=== PATIENT | male | born 1940 | race Caucasian/White ===

== ENCOUNTER → 2021-01-17 | Day surgery (SDC) | payer OTHER ==
[~2021-01-17] MED LIST: ACYCLOVIR400 MG PO; AMLODIPINE BESYL5 MG PO; ANTIDEPRESSANT PO; ARTIFICIAL TEA1 EAC1 EYEBOTH; CEFDINIR300 MG PO; COZAAR100 MG PO; CYMBALTA 30MG C30 MG PO; DOXYCYCLINE MO100 MG PO; FOLIC ACID1 MG PO; GLUCOTROL10 MG PO; HYZAAR 100-251 EACH PO; LEVAQUIN500 MG PO; LOPRESSOR25 MG PO; METFORMIN HCL500 MG PO; NORCO 5-325 TA1 EACH PO; NORCO 5-325 TA1 EACH PO/GT; PREDNISONE 20MG20 MG PO; PRINIVIL10 MG PO; VIBRAMYCIN100 MG PO; XARELTO10 MG PO; ZOFRAN8 MG PO/GT
[2021-01-17 09:27] LABS: HCT 32.5 % (42.0-52.0); MCH 33.2 pg (25.0-31.0); MCHC 33.8 g/dL (32.0-36.0); MCV 98.2 fL (78.0-100.0); MPV 9.7 fL (6.0-9.5); RBC 3.31 M/uL (4.70-6.00); RDW 13.2 % (11.5-14.0); WBC 4.9 K/uL (4.0-10.5)
[2021-01-17 09:36] LABS: ALBUMIN 3.8 g/dL (3.4-5.0); BILIRUBIN - TOTAL 0.3 mg/dL (0.2-1.0); BUN/CREAT RATIO (CALC) 22.3 RATIO; CREATININE 1.48 mg/dL (0.67-1.17); GLOBULIN (CALCULATION) 3.3 g/dL; POTASSIUM 4.3 mmol/L (3.5-5.1); TOTAL PROTEIN 7.1 g/dL (6.4-8.2)
--- NOTE | 2021-01-17 12:40 | NUR ---
DISCUSSED WITH DR. CURTIS RESTART OF XARELTO. PATIENT TO RESTART TODAY PER DR. CURTIS. PATIENT WAS CALLED AT HOME AND GIVEN THIS INSTRUCTION.
== END | disposition home or self-care (01) ==
LOC: FAS 08:44
PROVIDERS: Surgery
DX: R63.3 Feeding difficulties (principal); D68.9 Coagulation defect, unspecified; I10 Essential (primary) hypertension; E78.00 Pure hypercholesterolemia, unspecified; G47.30 Sleep apnea, unspecified; E10.9 Type 1 diabetes mellitus without complications; Z79.01 Long term (current) use of anticoagulants; Z79.84 Long term (current) use of oral hypoglycemic drugs; Z79.899 Other long term (current) drug therapy; Z86.718 Personal history of other venous thrombosis and embolism; Z88.0 Allergy status to penicillin; Z88.1 Allergy status to other antibiotic agents; Z88.8 Allergy status to other drugs, medicaments and biological substances; Z98.49 Cataract extraction status, unspecified eye; Z98.84 Bariatric surgery status
CPT/HCPCS: 36415; 80053; J2704; J7120

== ENCOUNTER 2021-03-20 19:27 | Inpatient (IN) | payer MEDICARE ==
[~2021-03-20] VITALS: Ht 165.1 cm; Wt 67.6 kg
[~2021-03-20 19:27] MED LIST changes: -ACYCLOVIR400 MG PO; -AMLODIPINE BESYL5 MG PO; -ARTIFICIAL TEA1 EAC1 EYEBOTH; -CEFDINIR300 MG PO; -COZAAR100 MG PO; -CYMBALTA 30MG C30 MG PO; -DOXYCYCLINE MO100 MG PO; -FOLIC ACID1 MG PO; -LEVAQUIN500 MG PO; -PREDNISONE 20MG20 MG PO; -VIBRAMYCIN100 MG PO
[2021-03-20 19:58] LABS: BASOPHIL 0.4 % (0-2); EOSINOPHIL 0.8 % (0-7); HCT 33.6 % (42.0-52.0); HGB 11.2 g/dl (13.2-18.0); LYMPHOCYTE 7.6 % (15-48); MCH 33.3 pg (25.0-31.0); MCHC 33.3 g/dL (32.0-36.0); MONOCYTE 5.7 % (0-12); MPV 9.2 fL (6.0-9.5); NEUTROPHIL 85.2 % (41-80); NRBC 0; PLT 231 K/uL (150-400); RBC 3.36 M/uL (4.70-6.00); RDW 13.2 % (11.5-14.0); WBC 7.9 K/uL (4.0-10.5)
[2021-03-20 20:50] LABS: CREATININE 1.5 mg/dL (0.67-1.17); POTASSIUM 3.7 mmol/L (3.5-5.1)
[2021-03-20 20:51] LABS: ALBUMIN 3.9 g/dL (3.4-5.0); BILIRUBIN - TOTAL 0.4 mg/dL (0.2-1.0); GLOBULIN (CALCULATION) 3.7 g/dL; TOTAL PROTEIN 7.6 g/dL (6.4-8.2)
[2021-03-21 01:10] LABS: LACTIC ACID 2.3 mmol/L (0.4-1.9)
--- NOTE | 2021-03-21 05:00 | NUR ---
Lactic reported to Dr. Jensen.
[2021-03-21] MEDS ORDERED: AMLODIPINE BESYL5 MG PO (05:24)
[2021-03-21] MEDS ORDERED: ARTIFICIAL TEA1 EAC1 EYEBOTH (05:25)
[2021-03-21] MEDS ORDERED: FOLIC ACID1 MG PO (05:26)
[2021-03-21] MEDS ORDERED: CYMBALTA 30MG C30 MG PO (05:26)
--- NOTE | 2021-03-21 06:07 | NUR ---
0415am Spoke with Octavio from pharmacy in regards to patients reaction and history of allergic reation to PCN and vancomycin. Discussed with Dr. Jensen patient's allergies and his reaction to PCN was facial edema and throat swelling. Informed by Dr. Jensen ,"cefepine should be fine since the reaction was in the 60's and wasn't a type 4 reaction." Informed Octavio with pharmacy of Dr. Jensen's reply. Will begin medication as ordered and montior patient closely.
[2021-03-21 11:37] LABS: BILIRUBIN NEGATIVE (NEGATIVE); BLOOD NEGATIVE Ery/uL (NEGATIVE); CLARITY CLEAR (CLEAR); COLOR YELLOW (YELLOW); GLUCOSE (U) NORMAL (NORMAL); LEUKOCYTES NEGATIVE Leu/uL (NEGATIVE); NITRITE NEGATIVE (NEGATIVE); PROTEIN NEGATIVE (NEGATIVE); SPECIFIC GRAVITY >=1.030 (1.001-1.030); UROBILINOGEN 0.2 mg/dL (0.2-1.0); pH 5.5 (5.0-9.0)
[2021-03-21 11:37] LABS: MAGNESIUM 1.8 mg/dL (1.8-2.4); PHOSPHORUS 2.8 mg/dL (2.6-4.7)
--- NOTE | 2021-03-21 15:00 | NUR ---
PT. RESIDES WITH HIS EX . HE IS INDEPENDENT.
[2021-03-22 05:42] LABS: BASOPHIL 0 % (0-2); EOSINOPHIL 0 % (0-7); HCT 26.8 % (42.0-52.0); LYMPHOCYTE 5.9 % (15-48); MCHC 33.6 g/dL (32.0-36.0); MCV 101.1 fL (78.0-100.0); MONOCYTE 5.2 % (0-12); MPV 9.6 fL (6.0-9.5); NEUTROPHIL 88.6 % (41-80); NRBC 0; PLT 156 K/uL (150-400); RBC 2.65 M/uL (4.70-6.00); RDW 13.2 % (11.5-14.0); WBC 6.9 K/uL (4.0-10.5)
--- NOTE | 2021-03-22 05:48 | NUR ---
PT WAS SWEATY AT 400 AND LETHARGIC, CHECK BLOOD SUGAR AND IT WAS 29, THE NURSE GAVE THE PT 2 APPLE JUICES WITH 2 SUGARS, SUGAR CAM E UP TO 39, NURSE GAVE D50. BLOOD SUGAR CHECKED 30 MIN AFTEER AND WAS 141
[2021-03-22 06:50] LABS: BUN/CREAT RATIO (CALC) 21.4 RATIO; CREATININE 1.4 mg/dL (0.67-1.17); MAGNESIUM 1.7 mg/dL (1.8-2.4)
--- NOTE | 2021-03-23 02:21 | NUR ---
NURSE CHECKED BLOOD GLUCOSE AT BEGINNING OF SHIFT, IT WAS 64. GAVE PT APPLE JUICE AND SNACKS, BG RECHECKED AND WAS 65. RECHECKED PT AT 0000, WAS 51. NURSE GAVE D50 AND STARTED THE HYPOGLYCEMIC PROTOOCOL PER DR. RODRIGUEZ
[2021-03-24 05:40] LABS: BASOPHIL 0.1 % (0-2); EOSINOPHIL 0.1 % (0-7); HCT 26.1 % (42.0-52.0); HGB 8.8 g/dl (13.2-18.0); LYMPHOCYTE 10.3 % (15-48); MCH 33.1 pg (25.0-31.0); MCHC 33.7 g/dL (32.0-36.0); MCV 98.1 fL (78.0-100.0); MPV 9.6 fL (6.0-9.5); NEUTROPHIL 83.2 % (41-80); NRBC 0; PLT 169 K/uL (150-400); RBC 2.66 M/uL (4.70-6.00); RDW 13.2 % (11.5-14.0); WBC 8.8 K/uL (4.0-10.5)
[2021-03-24 06:00] LABS: ALBUMIN 2.2 g/dL (3.4-5.0); BILIRUBIN - TOTAL 0.2 mg/dL (0.2-1.0); BUN/CREAT RATIO (CALC) 24.1 RATIO; CREATININE 1.33 mg/dL (0.67-1.17); GLOBULIN (CALCULATION) 3.5 g/dL; MAGNESIUM 1.9 mg/dL (1.8-2.4); PHOSPHORUS 3.2 mg/dL (2.6-4.7); POTASSIUM 4.4 mmol/L (3.5-5.1); TOTAL PROTEIN 5.7 g/dL (6.4-8.2)
[2021-03-24] MEDS ORDERED: LEVAQUIN500 MG PO (13:42)
[2021-03-24] MEDS ORDERED: PREDNISONE 20MG20 MG PO (13:42)
[2021-04-01] MEDS ORDERED: COZAAR100 MG PO (09:32)
[2021-04-08] MEDS ORDERED: CYMBALTA 30MG C30 MG PO (07:09)
[2021-04-08] MEDS ORDERED: NORCO 5-325 TA1 EACH PO (08:58)
== END 2021-03-24 15:25 | disposition home or self-care (01) | DRG 178 ==
LOC: FER 19:27 → FMS 03-21 00:57
PROVIDERS: Emergency Medicine; Hospitalist; Nurse Practitioner; ADMIT Internal Medicine
DX: J69.0 Pneumonitis due to inhalation of food and vomit (principal); N17.9 Acute kidney failure, unspecified; J44.0 Chronic obstructive pulmonary disease with (acute) lower respiratory infection; Z20.822 Contact with and (suspected) exposure to COVID-19; R00.1 Bradycardia, unspecified; G47.30 Sleep apnea, unspecified; N18.2 Chronic kidney disease, stage 2 (mild); I13.10 Hypertensive heart and chronic kidney disease without heart failure, with stage 1 through stage 4 chronic kidney disease, or unspecified chronic kidney disease; E11.22 Type 2 diabetes mellitus with diabetic chronic kidney disease; E11.649 Type 2 diabetes mellitus with hypoglycemia without coma; E78.00 Pure hypercholesterolemia, unspecified; F32.9 Major depressive disorder, single episode, unspecified; F43.10 Post-traumatic stress disorder, unspecified; K21.9 Gastro-esophageal reflux disease without esophagitis; E86.0 Dehydration; Z85.21 Personal history of malignant neoplasm of larynx; Z79.01 Long term (current) use of anticoagulants; Z90.49 Acquired absence of other specified parts of digestive tract; Z90.89 Acquired absence of other organs; Z87.01 Personal history of pneumonia (recurrent); Z79.899 Other long term (current) drug therapy; Z88.0 Allergy status to penicillin; Z88.1 Allergy status to other antibiotic agents; Z88.8 Allergy status to other drugs, medicaments and biological substances; Z86.711 Personal history of pulmonary embolism; Z85.118 Personal history of other malignant neoplasm of bronchus and lung; Z92.21 Personal history of antineoplastic chemotherapy; Z92.3 Personal history of irradiation
CPT/HCPCS: 36415; 70450; 71045; 71250; 80048; 80053; 80061; 80202; 81003; 82550; 82962; 83605; 83735; 84100; 84145; 84484; 85025; 87040; 92526; 93005; 94010; 94640; 94667; 94668; J1956; J2405; J3370; J3475; J3490; J7030; J7050; J7512; U0002

== ENCOUNTER → 2021-04-08 | Day surgery (SDC) | payer MEDICARE ==
[~2021-04-08] VITALS: Ht 177.8 cm; Wt 66.2 kg
[~2021-04-08] MED LIST changes: +ACYCLOVIR400 MG PO; +AMLODIPINE BESYL5 MG PO; +ARTIFICIAL TEA1 EAC1 EYEBOTH; +CEFDINIR300 MG PO; +COZAAR100 MG PO; +CYMBALTA 30MG C30 MG PO; +DOXYCYCLINE MO100 MG PO; +FOLIC ACID1 MG PO; +LEVAQUIN500 MG PO; +PREDNISONE 20MG20 MG PO; +VIBRAMYCIN100 MG PO
[2021-04-08 07:41] LABS: HCT 31.2 % (42.0-52.0); HGB 10.4 g/dl (13.2-18.0); MCH 32.9 pg (25.0-31.0); MCHC 33.3 g/dL (32.0-36.0); MCV 98.7 fL (78.0-100.0); MPV 9.4 fL (6.0-9.5); RBC 3.16 M/uL (4.70-6.00); RDW 12.9 % (11.5-14.0); WBC 5.2 K/uL (4.0-10.5)
[2021-04-08 08:21] LABS: BUN/CREAT RATIO (CALC) 21.2 RATIO; CREATININE 1.18 mg/dL (0.67-1.17); POTASSIUM 3.8 mmol/L (3.5-5.1)
== END | disposition home or self-care (01) ==
LOC: FAS 06:51
PROVIDERS: Surgery
DX: I87.2 Venous insufficiency (chronic) (peripheral) (principal); R63.3 Feeding difficulties; I10 Essential (primary) hypertension; F41.9 Anxiety disorder, unspecified; F32.9 Major depressive disorder, single episode, unspecified; E78.00 Pure hypercholesterolemia, unspecified; G47.30 Sleep apnea, unspecified; E10.9 Type 1 diabetes mellitus without complications; Z88.0 Allergy status to penicillin; Z88.8 Allergy status to other drugs, medicaments and biological substances; Z88.1 Allergy status to other antibiotic agents; Z79.01 Long term (current) use of anticoagulants; Z79.899 Other long term (current) drug therapy
CPT/HCPCS: 36415; 80048; J2250; J3010; J7120

== ENCOUNTER 2021-04-17 10:57 | Emergency (ER) | payer MEDICARE ==
[~2021-04-17 10:57] MED LIST changes: -ACYCLOVIR400 MG PO; -CEFDINIR300 MG PO; -DOXYCYCLINE MO100 MG PO; -VIBRAMYCIN100 MG PO
[2021-04-17 12:10] LABS: BASOPHIL 0.4 % (0-2); EOSINOPHIL 3.8 % (0-7); HCT 36.4 % (42.0-52.0); HGB 11.7 g/dl (13.2-18.0); LYMPHOCYTE 11.2 % (15-48); MCH 31.8 pg (25.0-31.0); MCHC 32.1 g/dL (32.0-36.0); MCV 98.9 fL (78.0-100.0); MONOCYTE 8.4 % (0-12); MPV 9.7 fL (6.0-9.5); NEUTROPHIL 75.8 % (41-80); NRBC 0; PLT 327 K/uL (150-400); RBC 3.68 M/uL (4.70-6.00); RDW 12.7 % (11.5-14.0); WBC 6.9 K/uL (4.0-10.5)
[2021-04-17 12:55] LABS: ALBUMIN 3.3 g/dL (3.4-5.0); BILIRUBIN - TOTAL 0.6 mg/dL (0.2-1.0); BUN/CREAT RATIO (CALC) 18.3 RATIO; CREATININE 1.2 mg/dL (0.67-1.17); GLOBULIN (CALCULATION) 4.8 g/dL; MAGNESIUM 1.8 mg/dL (1.8-2.4); TOTAL PROTEIN 8.1 g/dL (6.4-8.2)
[2021-04-17] MEDS ORDERED: NORCO 5-325 TA1 EACH PO (16:23)
[2021-04-17] MEDS ORDERED: VIBRAMYCIN100 MG PO (16:23)
[2021-04-17] MEDS ORDERED: ACYCLOVIR400 MG PO (16:23)
== END 2021-04-17 16:42 | disposition home or self-care (01) ==
LOC: FER 10:57
PROVIDERS: Emergency Medicine
DX: R07.89 Other chest pain (principal); B02.9 Zoster without complications; I10 Essential (primary) hypertension; E11.9 Type 2 diabetes mellitus without complications; Z88.0 Allergy status to penicillin; Z79.01 Long term (current) use of anticoagulants
CPT/HCPCS: 36415; 71275; 80053; 83690; 83735; 84145; 84443; 84484; 85025; 93005; Q9967

== ENCOUNTER 2021-04-24 11:38 | Inpatient (IN) | payer MEDICARE ==
[~2021-04-24] VITALS: Ht 177.8 cm; Wt 62.7 kg
[~2021-04-24 11:38] MED LIST changes: +ACYCLOVIR400 MG PO; +VIBRAMYCIN100 MG PO
[2021-04-24 12:15] LABS: BASOPHIL 0.5 % (0-2); EOSINOPHIL 1.8 % (0-7); HGB 11.4 g/dl (13.2-18.0); LYMPHOCYTE 10.5 % (15-48); MCH 31.9 pg (25.0-31.0); MCHC 32.6 g/dL (32.0-36.0); MONOCYTE 5.1 % (0-12); MPV 9.9 fL (6.0-9.5); NEUTROPHIL 81.7 % (41-80); NRBC 0; PLT 348 K/uL (150-400); RBC 3.57 M/uL (4.70-6.00); RDW 12.6 % (11.5-14.0); WBC 9.5 K/uL (4.0-10.5)
[2021-04-24 12:29] LABS: INR 1.09 (0.9-1.2); PROTHROMBIN TIME 13.5 SECONDS (11.8-13.4); PTT 29.4 SECONDS (24.4-34.7)
[2021-04-24 12:38] LABS: ALBUMIN 3.2 g/dL (3.4-5.0); BILIRUBIN - TOTAL 0.5 mg/dL (0.2-1.0); BUN/CREAT RATIO (CALC) 23.2 RATIO; CREATININE 1.25 mg/dL (0.67-1.17); GLOBULIN (CALCULATION) 3.7 g/dL; POTASSIUM 4.2 mmol/L (3.5-5.1); TOTAL PROTEIN 6.9 g/dL (6.4-8.2)
[2021-04-24 13:23] LABS: LACTIC ACID 2.5 mmol/L (0.4-1.9)
[2021-04-24 16:28] LABS: BILIRUBIN 1+ mg/dL (NEGATIVE); BLOOD NEGATIVE Ery/uL (NEGATIVE); CLARITY CLEAR (CLEAR); COLOR YELLOW (YELLOW); GLUCOSE (U) NORMAL (NORMAL); LEUKOCYTES NEGATIVE Leu/uL (NEGATIVE); NITRITE NEGATIVE (NEGATIVE); PROTEIN TRACE (LOW) mg/dL (NEGATIVE); SPECIFIC GRAVITY >=1.030 (1.001-1.030); UROBILINOGEN 0.2 mg/dL (0.2-1.0); pH 5.5 (5.0-9.0)
[2021-04-24 16:37] LABS: AMPHETAMINES NEGATIVE (NEGATIVE); BARBITURATES NEGATIVE (NEGATIVE); ECSTASY (MDMA) NEGATIVE (NEGATIVE); MARIJUANA (THC) NEGATIVE (NEGATIVE); METHADONE NEGATIVE (NEGATIVE); OPIATES NEGATIVE (NEGATIVE); OXYCODONE NEGATIVE (NEGATIVE)
[2021-04-24 16:40] LABS: BACTERIA 2+; SQUAMOUS EPITHELIAL CELLS RARE
[2021-04-25 06:26] LABS: BASOPHIL 0.1 % (0-2); EOSINOPHIL 0 % (0-7); HCT 31.6 % (42.0-52.0); HGB 10.2 g/dl (13.2-18.0); LYMPHOCYTE 7.3 % (15-48); MCH 31.7 pg (25.0-31.0); MCHC 32.3 g/dL (32.0-36.0); MCV 98.1 fL (78.0-100.0); MPV 9.6 fL (6.0-9.5); NEUTROPHIL 88.3 % (41-80); NRBC 0; PLT 281 K/uL (150-400); RBC 3.22 M/uL (4.70-6.00); RDW 12.6 % (11.5-14.0); WBC 6.8 K/uL (4.0-10.5)
[2021-04-25 07:46] LABS: BUN/CREAT RATIO (CALC) 29.2 RATIO; CREATININE 0.96 mg/dL (0.67-1.17); MAGNESIUM 1.6 mg/dL (1.8-2.4); POTASSIUM 4.3 mmol/L (3.5-5.1)
[2021-04-25 08:31] LABS: FOLIC ACID (SERUM) 9.1 ng/mL (8.6-58.9)
[2021-04-26 04:04] LABS: BASOPHIL 0.5 % (0-2); HCT 28.3 % (42.0-52.0); HGB 9.4 g/dl (13.2-18.0); LYMPHOCYTE 12.2 % (15-48); MCH 32.1 pg (25.0-31.0); MCHC 33.2 g/dL (32.0-36.0); MCV 96.6 fL (78.0-100.0); MONOCYTE 7.4 % (0-12); MPV 9.9 fL (6.0-9.5); NEUTROPHIL 77.5 % (41-80); NRBC 0; PLT 255 K/uL (150-400); RBC 2.93 M/uL (4.70-6.00); WBC 8.1 K/uL (4.0-10.5)
[2021-04-26 04:24] LABS: BUN/CREAT RATIO (CALC) 20.3 RATIO; CREATININE 1.23 mg/dL (0.67-1.17); POTASSIUM 3.9 mmol/L (3.5-5.1)
[2021-04-26 06:31] LABS: CKMB 1.6 ng/mL (0.0-3.6)
[2021-04-27 04:19] LABS: BASOPHIL 0.6 % (0-2); EOSINOPHIL 2.4 % (0-7); HCT 29.8 % (42.0-52.0); HGB 9.8 g/dl (13.2-18.0); LYMPHOCYTE 9.2 % (15-48); MCH 31.9 pg (25.0-31.0); MCHC 32.9 g/dL (32.0-36.0); MCV 97.1 fL (78.0-100.0); MONOCYTE 9.4 % (0-12); MPV 9.7 fL (6.0-9.5); NRBC 0; PLT 233 K/uL (150-400); RBC 3.07 M/uL (4.70-6.00); RDW 12.9 % (11.5-14.0)
[2021-04-27 04:36] LABS: BUN/CREAT RATIO (CALC) 17.1 RATIO; CREATININE 1.11 mg/dL (0.67-1.17); MAGNESIUM 1.7 mg/dL (1.8-2.4); PHOSPHORUS 3.2 mg/dL (2.6-4.7); POTASSIUM 4.3 mmol/L (3.5-5.1)
[2021-04-28 06:19] LABS: BASOPHIL 0.7 % (0-2); EOSINOPHIL 2.5 % (0-7); HCT 29.1 % (42.0-52.0); HGB 9.8 g/dl (13.2-18.0); LYMPHOCYTE 10.2 % (15-48); MCH 32.2 pg (25.0-31.0); MCHC 33.7 g/dL (32.0-36.0); MCV 95.7 fL (78.0-100.0); NEUTROPHIL 77.1 % (41-80); NRBC 0; PLT 216 K/uL (150-400); RBC 3.04 M/uL (4.70-6.00); RDW 12.8 % (11.5-14.0); WBC 6.1 K/uL (4.0-10.5)
[2021-04-28 06:50] LABS: BUN/CREAT RATIO (CALC) 18.4 RATIO; CREATININE 0.98 mg/dL (0.67-1.17); MAGNESIUM 1.6 mg/dL (1.8-2.4); POTASSIUM 3.9 mmol/L (3.5-5.1)
[2021-04-28] MEDS ORDERED: DOXYCYCLINE MO100 MG PO (11:12)
[2021-04-28] MEDS ORDERED: CEFDINIR300 MG PO (11:13)
== END 2021-04-28 16:44 | disposition home health service (06) | DRG 193 ==
LOC: FER 11:38 → FMS 14:22
PROVIDERS: Emergency Medicine; Nurse Practitioner; ADMIT Internal Medicine
DX: J18.9 Pneumonia, unspecified organism (principal); I21.A1 Myocardial infarction type 2; I10 Essential (primary) hypertension; R55 Syncope and collapse; E78.5 Hyperlipidemia, unspecified; I70.0 Atherosclerosis of aorta; I27.20 Pulmonary hypertension, unspecified; E11.9 Type 2 diabetes mellitus without complications; G47.33 Obstructive sleep apnea (adult) (pediatric); G47.00 Insomnia, unspecified; E53.8 Deficiency of other specified B group vitamins; F32.9 Major depressive disorder, single episode, unspecified; K21.9 Gastro-esophageal reflux disease without esophagitis; Z79.899 Other long term (current) drug therapy; Z79.01 Long term (current) use of anticoagulants; Z85.810 Personal history of malignant neoplasm of tongue; Z90.49 Acquired absence of other specified parts of digestive tract; Z88.3 Allergy status to other anti-infective agents; Z88.0 Allergy status to penicillin; Z88.8 Allergy status to other drugs, medicaments and biological substances
CPT/HCPCS: 36415; 70450; 71045; 80048; 80053; 80305; 81001; 82140; 82553; 82607; 82746; 82962; 83036; 83540; 83605; 83735; 83880; 84100; 84443; 84484; 85025; 85610; 85730; 87040; 87088; 93005; 97116; 97161; J0696; J2405; J2920; J3475; J7030; J7050; J7120

== ENCOUNTER 2021-09-14 19:39 | Inpatient (IN) | payer MEDICARE ==
[~2021-09-14] VITALS: Ht 175.3 cm; Wt 69.9 kg
[~2021-09-14 19:39] MED LIST changes: +CEFDINIR300 MG PO; +DOXYCYCLINE MO100 MG PO
[2021-09-14 20:29] LABS: BASOPHIL 0.6 % (0-2); EOSINOPHIL 3.2 % (0-7); HCT 33.3 % (42.0-52.0); LYMPHOCYTE 17.4 % (15-48); MCH 31.9 pg (25.0-31.0); MCV 96.5 fL (78.0-100.0); MONOCYTE 9.8 % (0-12); MPV 9.7 fL (6.0-9.5); NEUTROPHIL 68.8 % (41-80); NRBC 0; PLT 183 K/uL (150-400); RBC 3.45 M/uL (4.70-6.00); RDW 13.3 % (11.5-14.0)
[2021-09-14 20:55] LABS: LACTIC ACID 1.6 mmol/L (0.4-1.9)
[2021-09-14 20:58] LABS: PRO-BNP 348 pg/mL (<450)
[2021-09-14 21:00] LABS: PROTHROMBIN TIME 12.6 SECONDS (11.8-13.4)
[2021-09-14 21:01] LABS: PTT 31.2 SECONDS (24.4-34.7)
[2021-09-14 21:21] LABS: CORONAVIRUS 2019 SARS-COV-2 NEGATIVE (NEGATIVE); INFLUENZA A NAA NEGATIVE (NEGATIVE)
[2021-09-14 21:37] LABS: ALBUMIN 3.8 g/dL (3.4-5.0); BILIRUBIN - TOTAL 0.4 mg/dL (0.2-1.0); BUN/CREAT RATIO (CALC) 24.4 RATIO; CREATININE 1.19 mg/dL (0.67-1.17); FT4 (FREE T4) 0.7 ng/dL (0.76-1.46); GLOBULIN (CALCULATION) 3.2 g/dL; POTASSIUM 4.2 mmol/L (3.5-5.1)
[2021-09-14 22:32] LABS: BILIRUBIN NEGATIVE (NEGATIVE); BLOOD TRACE-INTACT Ery/uL (NEGATIVE); CLARITY CLEAR (CLEAR); COLOR YELLOW (YELLOW); GLUCOSE (U) NORMAL (NORMAL); LEUKOCYTES NEGATIVE Leu/uL (NEGATIVE); NITRITE NEGATIVE (NEGATIVE); PROTEIN NEGATIVE (NEGATIVE); UROBILINOGEN 0.2 mg/dL (0.2-1.0)
[2021-09-14 23:14] LABS: SQUAMOUS EPITHELIAL CELLS RARE; URINARY WBC RARE
[2021-09-15 07:18] LABS: CHOLESTEROL 178 mg/dL (<200); HDL 57 mg/dL (40-60); LDL - DIRECT 90 mg/dL (<100); TRIGLYCERIDES 222 mg/dL (<150)
[2021-09-15] MEDS ORDERED: COZAAR50 MG PO (11:37)
[2021-09-15] MEDS ORDERED: FOLIC ACID1 MG PO (11:38)
[2021-09-15] MEDS ORDERED: ARTHRITIS PAIN50 GM TOP (11:41)
[2021-09-15] MEDS ORDERED: ENSURE PLUS237 ML PO (11:42)
[2021-09-15] MEDS ORDERED: AMLODIPINE BESY10 MG PO (11:44)
[2021-09-15] MEDS ORDERED: REMERON15 MG PO (11:45)
[2021-09-15] MEDS ORDERED: CYMBALTA 30MG C30 MG PO (11:47)
[2021-09-15] MEDS ORDERED: IRBESARTAN300 MG PO (11:48)
[2021-09-15] MEDS ORDERED: WELLBUTRIN XL150 MG PO (11:48)
[2021-09-16 07:18] LABS: BASOPHIL 0.2 % (0-2); EOSINOPHIL 0.6 % (0-7); HCT 30.5 % (42.0-52.0); HGB 10.2 g/dl (13.2-18.0); LYMPHOCYTE 7.3 % (15-48); MCH 32.4 pg (25.0-31.0); MCHC 33.4 g/dL (32.0-36.0); MCV 96.8 fL (78.0-100.0); MONOCYTE 6.6 % (0-12); MPV 9.5 fL (6.0-9.5); NEUTROPHIL 85.2 % (41-80); NRBC 0; PLT 160 K/uL (150-400); RBC 3.15 M/uL (4.70-6.00); RDW 13.6 % (11.5-14.0); WBC 8.2 K/uL (4.0-10.5)
[2021-09-16 07:47] LABS: BUN/CREAT RATIO (CALC) 20.2 RATIO; CREATININE 1.29 mg/dL (0.67-1.17); POTASSIUM 3.9 mmol/L (3.5-5.1)
--- NOTE | 2021-09-16 17:57 | NUR ---
09/16 Mr. Rai shares a home with his former spouse. He does not use any DME. Mr. Rai would like a SNF placement. Will contact [place] for approval for SNF placement.
--- NOTE | 2021-09-17 10:19 | NUR ---
09/17 Clinicals have been faxed to Dr. Morrison and Angela Rothman RN at [facility], job - [phone] , tel # [phone], inefforst to have SNF placement approved.
[2021-09-17 12:48] LABS: BUN/CREAT RATIO (CALC) 20.3 RATIO; CREATININE 1.28 mg/dL (0.67-1.17)
--- NOTE | 2021-09-18 14:52 | NUR ---
09/18/21 [place] sent of list of [facility]. ([place], [place] swer - [phone] ext [phone]). Vaelria [place], [place] [facility]ordin[facility], ([phone]) is to be contacted once placement is secured to complete the contract with the facility. [facility] search has been initiated from the contracted [facility] list.
[2021-09-19 08:42] LABS: CREATININE 1.37 mg/dL (0.67-1.17); POTASSIUM 3.9 mmol/L (3.5-5.1)
--- NOTE | 2021-09-19 15:54 | NUR ---
09/19 [facility] and [facility] offered patient a bed. Mr. Rai accepted [facility]. A required [facility] form is being completed and faxed back to [facility] in order for the [place] contract to be complated. [facility] will call [facility] when the [facility] contract is completed. - Fax DS to [phone] and call report to [phone]. Report given to Yumiko Blackman [place] RN.
[2021-09-20 07:03] LABS: BUN/CREAT RATIO (CALC) 18.7 RATIO; CREATININE 1.34 mg/dL (0.67-1.17); POTASSIUM 4.1 mmol/L (3.5-5.1)
[2021-09-22 09:34] LABS: HCT 32.3 % (42.0-52.0); HGB 10.6 g/dl (13.2-18.0); MCH 32.1 pg (25.0-31.0); MCHC 32.8 g/dL (32.0-36.0); MCV 97.9 fL (78.0-100.0); MPV 9.5 fL (6.0-9.5); RBC 3.3 M/uL (4.70-6.00); RDW 13.2 % (11.5-14.0); WBC 4.7 K/uL (4.0-10.5)
[2021-09-22 09:51] LABS: BUN/CREAT RATIO (CALC) 18.8 RATIO; CREATININE 1.38 mg/dL (0.67-1.17)
[2021-09-23] MEDS ORDERED: ASPIRIN325 MG PO (09:43)
[2021-09-23] MEDS ORDERED: SYNTHROID75 MCG PO (09:43)
--- NOTE | 2021-09-23 09:43 | NUR ---
RECEIVED CALL FROM DIONICIO WITH [facility]. [place] HAS APPROVED PT ADMISSION TO FACILITY. REPORT NUMBER IS [phone] AND FAX NUMBER FOR REPORT IS [phone]. ADVISED DR. LANDRUM THAT PT WILL NEED A COVID TEST FOR ADMISSION. ATTEMPTED TO FIND NURSE, REN, SHE WAS UNAVAILABLE, TOLD YANY, CHARGE NURSE AND GENE TO PLEASE ADVISE REN.
== END 2021-09-23 15:58 | DRG 64 ==
LOC: FER 19:39 → FMS 09-15 04:37
PROVIDERS: Emergency Medicine Emergency Medical Services; Hospitalist; Nurse Practitioner Acute Care; ADMIT Internal Medicine
DX: I63.89 Other cerebral infarction (principal); I21.4 Non-ST elevation (NSTEMI) myocardial infarction; G93.6 Cerebral edema; G81.94 Hemiplegia, unspecified affecting left nondominant side; N17.9 Acute kidney failure, unspecified; R29.700 NIHSS score 0; Z20.822 Contact with and (suspected) exposure to COVID-19; R27.0 Ataxia, unspecified; R13.10 Dysphagia, unspecified; I65.23 Occlusion and stenosis of bilateral carotid arteries; Z66 Do not resuscitate; I95.9 Hypotension, unspecified; K21.9 Gastro-esophageal reflux disease without esophagitis; I10 Essential (primary) hypertension; E11.9 Type 2 diabetes mellitus without complications; E03.9 Hypothyroidism, unspecified; E78.5 Hyperlipidemia, unspecified; I07.1 Rheumatic tricuspid insufficiency; G47.33 Obstructive sleep apnea (adult) (pediatric); F41.9 Anxiety disorder, unspecified; F32.A Depression, unspecified; I45.10 Unspecified right bundle-branch block; Z85.810 Personal history of malignant neoplasm of tongue; Z86.711 Personal history of pulmonary embolism; Z86.718 Personal history of other venous thrombosis and embolism; Z92.21 Personal history of antineoplastic chemotherapy; Z88.0 Allergy status to penicillin; Z88.1 Allergy status to other antibiotic agents; Z88.8 Allergy status to other drugs, medicaments and biological substances; Z79.899 Other long term (current) drug therapy; Z90.49 Acquired absence of other specified parts of digestive tract; Z98.890 Other specified postprocedural states; Z87.442 Personal history of urinary calculi; Z87.01 Personal history of pneumonia (recurrent)
CPT/HCPCS: 36415; 70450; 70553; 71045; 73030; 73502; 74230; 80048; 80053; 80061; 81001; 82550; 82565; 83605; 83880; 84439; 84443; 84484; 85025; 85379; 85610; 85730; 87040; 92611; 93005; 94010; 97162; 97166; 97530; 97530-GP; 97535; A9579; J0360; J1170; J1650; J2060; J2405; J7030; J7040; Q9967; U0002

== ENCOUNTER 2022-05-11 11:21 | Emergency (ER) | payer MEDICARE ==
[~2022-05-11 11:21] MED LIST changes: +AMLODIPINE BESY10 MG PO; +ARTHRITIS PAIN50 GM TOP; +ASPIRIN325 MG PO; +COZAAR50 MG PO; +ENSURE PLUS237 ML PO; +IRBESARTAN300 MG PO; +REMERON15 MG PO; +SYNTHROID75 MCG PO; +WELLBUTRIN XL150 MG PO
[2022-05-11 12:19] LABS: BASOPHIL 0.6 % (0-2); EOSINOPHIL 1.6 % (0-7); HCT 33.1 % (42.0-52.0); HGB 11.1 g/dl (13.2-18.0); LYMPHOCYTE 6.7 % (15-48); MCH 32.5 pg (25.0-31.0); MCHC 33.5 g/dL (32.0-36.0); MCV 96.8 fL (78.0-100.0); MPV 9.5 fL (6.0-9.5); NEUTROPHIL 84.6 % (41-80); NRBC 0; PLT 231 K/uL (150-400); RBC 3.42 M/uL (4.70-6.00); RDW 13.2 % (11.5-14.0); WBC 8.8 K/uL (4.0-10.5)
[2022-05-11 12:28] LABS: INR 0.99 (0.9-1.2); PROTHROMBIN TIME 12.8 SECONDS (11.9-13.9); PTT 26.2 SECONDS (24.9-34.6)
[2022-05-11 12:29] LABS: D-DIMER 0.52 ug/mLFEU (0.00-0.41)
[2022-05-11 12:41] LABS: ALBUMIN 3.7 g/dL (3.4-5.0); BILIRUBIN - TOTAL 0.5 mg/dL (0.2-1.0); BUN/CREAT RATIO (CALC) 20.9 RATIO; CREATININE 1.53 mg/dL (0.67-1.17); GLOBULIN (CALCULATION) 4.1 g/dL; MAGNESIUM 1.8 mg/dL (1.8-2.4); POTASSIUM 4.7 mmol/L (3.5-5.1); TOTAL PROTEIN 7.8 g/dL (6.4-8.2)
[2022-05-11 12:48] LABS: LACTIC ACID 1.7 mmol/L (0.4-1.9)
[2022-05-11 13:45] LABS: FT4 (FREE T4) 0.8 ng/dL (0.76-1.46)
== END 2022-05-11 17:49 | disposition home or self-care (01) ==
LOC: FER 11:21
PROVIDERS: Emergency Medicine
DX: R55 Syncope and collapse (principal); E03.9 Hypothyroidism, unspecified; R73.9 Hyperglycemia, unspecified; Z88.0 Allergy status to penicillin; Z20.822 Contact with and (suspected) exposure to COVID-19
CPT/HCPCS: 36415; 70450; 71045; 80053; 83036; 83605; 83735; 83880; 84145; 84439; 84443; 84484; 85025; 85379; 85610; 85730; 93005; J7030; U0002

== ENCOUNTER 2022-06-01 13:47 | Emergency (ER) | payer OTHER ==
[2022-06-01 14:54] LABS: BASOPHIL 0.4 % (0-2); EOSINOPHIL 3.2 % (0-7); HCT 28.5 % (42.0-52.0); HGB 9.3 g/dl (13.2-18.0); LYMPHOCYTE 13.9 % (15-48); MCH 32.2 pg (25.0-31.0); MCHC 32.6 g/dL (32.0-36.0); MCV 98.6 fL (78.0-100.0); MONOCYTE 10.5 % (0-12); MPV 9.7 fL (6.0-9.5); NEUTROPHIL 71.5 % (41-80); NRBC 0; PLT 211 K/uL (150-400); RBC 2.89 M/uL (4.70-6.00); RDW 13.2 % (11.5-14.0); WBC 5.7 K/uL (4.0-10.5)
[2022-06-01 14:59] LABS: INR 1.05 (0.9-1.2); PROTHROMBIN TIME 13.4 SECONDS (11.9-13.9); PTT 31.4 SECONDS (24.9-34.6)
[2022-06-01 15:21] LABS: LACTIC ACID 2.6 mmol/L (0.4-1.9)
[2022-06-01 15:32] LABS: ALBUMIN 2.8 g/dL (3.4-5.0); BILIRUBIN - TOTAL 0.3 mg/dL (0.2-1.0); BUN/CREAT RATIO (CALC) 15.3 RATIO; CREATININE 2.35 mg/dL (0.67-1.17); GLOBULIN (CALCULATION) 3.7 g/dL; POTASSIUM 4.3 mmol/L (3.5-5.1); TOTAL PROTEIN 6.5 g/dL (6.4-8.2)
[2022-06-01 18:33] LABS: BILIRUBIN NEGATIVE (NEGATIVE); BLOOD TRACE-LYSED Ery/uL (NEGATIVE); CLARITY CLEAR (CLEAR); COLOR YELLOW (YELLOW); GLUCOSE (U) NORMAL (NORMAL); LEUKOCYTES NEGATIVE Leu/uL (NEGATIVE); NITRITE NEGATIVE (NEGATIVE); PROTEIN NEGATIVE (NEGATIVE); UROBILINOGEN 0.2 mg/dL (0.2-1.0); pH 5.5 (5.0-9.0)
[2022-06-01 18:59] LABS: URINARY RBC RARE; URINARY WBC RARE
== END 2022-06-01 19:30 | disposition home or self-care (01) ==
LOC: FER 13:47
PROVIDERS: Emergency Medicine
DX: R03.1 Nonspecific low blood-pressure reading (principal); R55 Syncope and collapse; I10 Essential (primary) hypertension; I69.954 Hemiplegia and hemiparesis following unspecified cerebrovascular disease affecting left non-dominant side
CPT/HCPCS: 36415; 70450; 71045; 72170; 80053; 81001; 83605; 83880; 84145; 84484; 85025; 85610; 85730; 87040; 87088; 93005; J7030